=== PATIENT | female | born 1975 | race Caucasian/White ===

== ENCOUNTER 2019-08-03 14:30 | Outpatient (CLI) | payer OTHER ==
[2019-08-03] MEDS ORDERED: PSEUDOEPHEDRINE (15:29)
[2019-08-03] MEDS ORDERED: NAPR220C2 PO (15:29)
[2019-08-03 15:46] LABS: BASOPHILS # (AUTO) 0.02 x10^3/uL (0-0.1); BASOPHILS % (AUTO) 0 % (0-1); EOSINOPHILS # (AUTO) 0.14 x10^3/uL (0-0.4); EOSINOPHILS % (AUTO) 2 % (1-7); LYMPHOCYTES # (AUTO) 1.91 x10^3/uL (1-3.4); LYMPHOCYTES % (AUTO) 32 % (22-44); MD NO; MEAN CORPUSCULAR HEMOGLOBIN 31.1 pg (27.0-34.8); MEAN CORPUSCULAR HGB CONC 33.3 g/dL (32.4-35.8); MEAN CORPUSCULAR VOLUME 93.5 fL (80-100); MONOCYTES # (AUTO) 0.61 x10^3/uL (0.2-0.8); MONOCYTES % (AUTO) 10 % (2-9); NEUTROPHILS # (AUTO) 3.38 x10^3/uL (1.8-6.8); NEUTROPHILS % (AUTO) 56 % (42-75); PLATELET COUNT 226 x10^3/uL (130-400); RED BLOOD COUNT 4.36 x10^6/uL (3.82-5.3); RED CELL DISTRIBUTION WIDTH 13.6 % (9.6-15.2)
[2019-08-03 15:55] LABS: ALBUMIN 3.8 g/dL (3.4-5.0); ANION GAP 5 mmol/L (5-15); CALCIUM 8.9 mg/dL (8.5-10.1); CHLORIDE 109 mmol/L (98-107)
[2019-08-03 15:58] LABS: ALANINE AMINOTRANSFERASE 63 U/L (12-78); ALKALINE PHOSPHATASE 55 U/L (45-117); BILIRUBIN,TOTAL 0.5 mg/dL (0.2-1.0); CREATININE 0.72 mg/dL (0.55-1.02); TOTAL PROTEIN 7.7 g/dL (6.4-8.2)
[2019-08-03 16:09] LABS: MICROSCOPIC NOT IND
[2019-08-03 16:10] LABS: CULTURE INDICATED? NO
== END 2019-08-03 23:59 | disposition home or self-care (01) ==
LOC: STAR 14:30
PROVIDERS: ATTEND Obstetrics & Gynecology
DX: Z01.818 Encounter for other preprocedural examination (principal); D25.9 Leiomyoma of uterus, unspecified
CPT/HCPCS: 36415; 80053; 81003; 85025

== ENCOUNTER 2019-08-16 05:43 | Inpatient (IN) ==
[~2019-08-16] VITALS: Ht 170.2 cm; Wt 112.5 kg
[~2019-08-16 05:43] MED LIST: NAPR220C2 PO; PSEUDOEPHEDRINE
[2019-08-16] MEDS ORDERED: LACTATED RINGERS 1,000 ML IV SCH (06:36)
[2019-08-16 06:41] LABS: HCG UR SG 1.015 (1.003-1.030)
[2019-08-16] MEDS ORDERED: SCOPOLAMINE PATCH, 1.5MG PATCH.TD72 TD ONE (07:00)
[2019-08-16] MEDS ORDERED: ACETAMINOPHEN 500 MG TABLET PO ONE (07:00)
[2019-08-16] MEDS ORDERED: GABAPENTIN 300 MG CAPSULE PO ONE (07:00)
[2019-08-16] MEDS ORDERED: DEXMEDETOMIDINE 200 MCG/2 ML ONE (07:13)
[2019-08-16] MEDS ORDERED: MIDAZOLAM 1 MG/ML, 2ML ONE (07:26)
[2019-08-16] MEDS ORDERED: FENTANYL PF 250 MCG/5ML ONE ×2 (07:27→09:01)
[2019-08-16] MEDS ORDERED: KETOROLAC 30 MG/1 ML ONE (07:37)
[2019-08-16] MEDS ORDERED: LIDOCAINE PF 2%, 5ML ONE (07:37)
[2019-08-16] MEDS ORDERED: VASOPRESSIN 20 UNIT/ML, 1ML ONE (08:10)
[2019-08-16] MEDS ORDERED: SODIUM CHLORIDE 0.9% 100 ML ONE (08:10)
[2019-08-16] MEDS ORDERED: PROMETHAZINE 25 MG/ML, 1ML IV PRN (08:30)
[2019-08-16] MEDS ORDERED: OXYcodone 5 MG/5 ML ORAL.SOL UDC PO PRN ×2 (08:30→13:30)
[2019-08-16] MEDS ORDERED: hydrALAzine 20 MG/ML, 1ML IV PRN (08:30)
[2019-08-16] MEDS ORDERED: ALBUTEROL/IPRATROPIUM 2.5MG/0.5MG, 3 ML NPPB PRN (08:30)
[2019-08-16] MEDS ORDERED: METOPROLOL 1 MG/ML, 5ML IV PRN (08:30)
[2019-08-16] MEDS ORDERED: HYDROmorphone 2 MG/ML, 1ML IVPush PRN (08:30)
[2019-08-16] MEDS ORDERED: MIDAZOLAM 1 MG/ML, 2ML IV PRN (08:30)
[2019-08-16] MEDS ORDERED: FENTANYL PF 100 MCG/2ML IV PRN (08:30)
[2019-08-16] MEDS ORDERED: MEPERIDINE/PF 25MG/ML,1ML IVPush PRN (08:30)
[2019-08-16] MEDS ORDERED: PROPOFOL 10 MG/ML, 20ML ONE (09:02)
[2019-08-16] MEDS ORDERED: GLYCOPYRROLATE 0.2MG/1ML, 5ML ONE (09:02)
[2019-08-16] MEDS ORDERED: ONDANSETRON 2MG/ML, 2ML ONE (09:02)
[2019-08-16] MEDS ORDERED: CEFAZOLIN 1,000 MG ONE (09:02)
[2019-08-16] MEDS ORDERED: LIDOCAINE-MPF 2% ,5ML ONE (09:02)
[2019-08-16] MEDS ORDERED: ROCURONIUM 10MG/ML,5ML ONE (09:02)
[2019-08-16] MEDS ORDERED: DEXAMETHASONE 4 MG/ML, 1ML ONE (09:02)
[2019-08-16] MEDS ORDERED: NEOSTIGMINE 1 MG/ML, 10ML ONE (09:02)
[2019-08-16] MEDS ORDERED: INDIGO CARMINE 0.8%, 5ML ONE ×2 (09:09→09:40)
[2019-08-16] MEDS ORDERED: FENTANYL PF 100 MCG/2ML ONE (11:21)
[2019-08-16] MEDS ORDERED: OXYcodone 5 MG/5 ML ORAL.SOL UDC ONE (11:22)
[2019-08-16] MEDS ORDERED: morphine SULFATE 10 MG/ML, 1ML IV PRN (13:30)
[2019-08-16] MEDS ORDERED: INSTRUCTION SEE COMMENTS XX PRN (13:30)
[2019-08-16 14:04] VITALS: BP 107/68
[2019-08-16] MEDS: IBUPROFEN 600 MG TABLET PO SCH ×2 (16:37→22:10)
[2019-08-16] MEDS: SIMETHICONE 80 MG CHEW TAB PO SCH ×2 (16:37→22:10)
[2019-08-16] MEDS: CEFAZOLIN PMX 2GM/50ML 50 ML IVPB SCH (16:38)
[2019-08-16] MEDS: LACTATED RINGERS 1,000 ML IV SCH (16:45)
[2019-08-16 21:39] VITALS: BP_SYST 101; BP_SYST 96; BP_DIAS 46; BP_DIAS 55
[2019-08-16 23:49] VITALS: BP 98/52
[2019-08-17] MEDS: CEFAZOLIN PMX 2GM/50ML 50 ML IVPB SCH (00:15)
[2019-08-17] MEDS: LACTATED RINGERS 1,000 ML IV SCH ×3 (03:20→20:00)
[2019-08-17] MEDS: OXYcodone/APAP 5/325MG TABLET PO PRN ×4 (03:22→19:11)
[2019-08-17 04:37] VITALS: BP 104/53
[2019-08-17 05:21] LABS: ALBUMIN 2.9 g/dL (3.4-5.0); ANION GAP 4 mmol/L (5-15); CALCIUM 8.1 mg/dL (8.5-10.1); CHLORIDE 109 mmol/L (98-107)
[2019-08-17 05:24] LABS: ALANINE AMINOTRANSFERASE 22 U/L (12-78); ALKALINE PHOSPHATASE 43 U/L (45-117); BILIRUBIN,TOTAL 0.7 mg/dL (0.2-1.0); CREATININE 0.72 mg/dL (0.55-1.02); TOTAL PROTEIN 6.1 g/dL (6.4-8.2)
[2019-08-17] MEDS: IBUPROFEN 600 MG TABLET PO SCH ×4 (05:39→20:44)
[2019-08-17 07:10] VITALS: BP 110/56
[2019-08-17] MEDS: SIMETHICONE 80 MG CHEW TAB PO SCH ×3 (08:13→20:44)
[2019-08-17] MEDS ORDERED: LISINOPRIL 5 MG TABLET PO SCH (09:00)
[2019-08-17 14:30] VITALS: BP 102/60
[2019-08-17 18:46] VITALS: BP 110/65
[2019-08-18 02:27] VITALS: BP 102/64
[2019-08-18] MEDS: OXYcodone/APAP 5/325MG TABLET PO PRN ×3 (02:29→13:12)
[2019-08-18] MEDS: IBUPROFEN 600 MG TABLET PO SCH ×3 (05:02→16:06)
[2019-08-18 07:28] VITALS: BP 112/72
[2019-08-18] MEDS: LACTATED RINGERS 1,000 ML IV SCH ×2 (08:00→15:34)
[2019-08-18] MEDS: SIMETHICONE 80 MG CHEW TAB PO SCH ×2 (08:26→16:06)
[2019-08-18 13:00] VITALS: BP 115/74
[2019-08-18] MEDS ORDERED: OXYC-302 PO (17:16)
[2019-08-18] MEDS ORDERED: NITR100C56 PO (17:16)
[2019-08-18] MEDS ORDERED: IBUP-1840 PO (17:17)
== END 2019-08-18 17:48 | disposition home or self-care (01) | DRG 742 ==
LOC: ORIP 05:43 → 4NE 12:23
PROVIDERS: ADMIT Obstetrics & Gynecology; ATTEND Obstetrics & Gynecology
PROC: 0UT70ZZ Resection of Bilateral Fallopian Tubes, Open Approach (ICD-10-PCS; 2019-08-16)
PROC: 0TJB8ZZ Inspection of Bladder, Via Natural or Artificial Opening Endoscopic (ICD-10-PCS; 2019-08-16)
PROC: 3E0T3BZ Introduction of Anesthetic Agent into Peripheral Nerves and Plexi, Percutaneous Approach (ICD-10-PCS; 2019-08-16)
PROC: 0TQB0ZZ Repair Bladder, Open Approach (ICD-10-PCS; 2019-08-16)
PROC: 0UT90ZZ Resection of Uterus, Open Approach (ICD-10-PCS; principal; 2019-08-16 07:30)
DX: D25.9 Leiomyoma of uterus, unspecified (principal); S37.29XA Other injury of bladder, initial encounter; N92.0 Excessive and frequent menstruation with regular cycle; E66.9 Obesity, unspecified; Z68.38 Body mass index [BMI] 38.0-38.9, adult; X58.XXXA Exposure to other specified factors, initial encounter; Y92.234 Operating room of hospital as the place of occurrence of the external cause
CPT/HCPCS: 36415; J3490; 80053; 81025; 85014; 85018; 86850; 86900; 86923; 88307; G0378; J0690; J1100; J1885; J2250; J2270; J2405; J2704; J2710; J3010; J7120

== ENCOUNTER 2019-08-22 14:40 | Inpatient (IN) | payer OTHER ==
[~2019-08-22] VITALS: Ht 170.2 cm; Wt 108.0 kg
[~2019-08-22 14:40] MED LIST changes: +IBUP-1840 PO; +NITR100C56 PO; +OXYC-302 PO
[2019-08-22 15:23] LABS: BASOPHILS # (AUTO) 0.01 x10^3/uL (0-0.1); BASOPHILS % (AUTO) 0 % (0-1); EOSINOPHILS # (AUTO) 0.18 x10^3/uL (0-0.4); EOSINOPHILS % (AUTO) 3 % (1-7); LYMPHOCYTES # (AUTO) 1.29 x10^3/uL (1-3.4); LYMPHOCYTES % (AUTO) 19 % (22-44); MD NO; MEAN CORPUSCULAR HEMOGLOBIN 30.6 pg (27.0-34.8); MEAN CORPUSCULAR HGB CONC 33.3 g/dL (32.4-35.8); MEAN CORPUSCULAR VOLUME 91.8 fL (80-100); MEAN PLATELET VOLUME 8.3 fL (7.4-10.4); MONOCYTES # (AUTO) 0.82 x10^3/uL (0.2-0.8); MONOCYTES % (AUTO) 12 % (2-9); NEUTROPHILS # (AUTO) 4.59 x10^3/uL (1.8-6.8); NEUTROPHILS % (AUTO) 67 % (42-75); PLATELET COUNT 223 x10^3/uL (130-400); RED BLOOD COUNT 4.29 x10^6/uL (3.82-5.3)
[2019-08-22 15:30] LABS: INTERNATIONAL NORMALIZED RATIO 0.97 (0.93-1.1); PROTHROMBIN TIME 10.2 Seconds (9.6-11.5)
[2019-08-22] MEDS ORDERED: SODIUM CHLORIDE FLUSH 10ML SYR IVF ONE (15:30)
--- NOTE | 2019-08-22 15:32 | NUR ---
URINE SAMPLE COLLECTED, CLEAN CATCH, FROM CATHETER TUBING. BAG EMPTIED
[2019-08-22 15:33] LABS: ALANINE AMINOTRANSFERASE 46 U/L (12-78); ALBUMIN 3.5 g/dL (3.4-5.0); ANION GAP 7 mmol/L (5-15); CALCIUM 9.2 mg/dL (8.5-10.1); CHLORIDE 108 mmol/L (98-107); CREATININE 0.72 mg/dL (0.55-1.02)
[2019-08-22 15:37] LABS: ALKALINE PHOSPHATASE 55 U/L (45-117); BILIRUBIN,TOTAL 0.5 mg/dL (0.2-1.0); TOTAL PROTEIN 7.7 g/dL (6.4-8.2); TROPONIN I < 0.015 ng/mL (0.000-0.045)
--- NOTE | 2019-08-22 16:02 | NUR ---
PT RESTING IN [facility] ON MONITOR, NO NEEDS AT THIS TIME. AWAITING LAB AND RAD RESULTS
[2019-08-22 16:13] LABS: MICROSCOPIC AUTO
[2019-08-22 16:14] LABS: CULTURE INDICATED? NO
--- NOTE | 2019-08-22 16:56 | NUR ---
NEEDS IV FOR CTA
--- NOTE | 2019-08-22 17:02 | NUR ---
UNABLE TO ESTABLISH IV VIA US, RN TO GET ASSIST WITH IV PLACEMENT. PA AWARE
--- NOTE | 2019-08-22 17:32 | NUR ---
IV ESTABLISHED VIA EJ BY ANNA CHATMAN. ANNA CHATMAN ESCORTED PT TO CT FOR CONTRAST INFUSION THROUGH EJ, PER REPORT PT TOLERATED WELL.
[2019-08-22] MEDS ORDERED: OMNIPAQUE 350 MG/ML, 100ML BOTTLE ONE (17:47)
[2019-08-22] MEDS ORDERED: HEPARIN 5,000 UNITS/ML, 1ML IV ONE (18:00)
--- NOTE | 2019-08-22 18:07 | NUR ---
PT RESTING IN GURNEY WITH MOTHER AT BEDSIDE. PT TO BE ADMITTED TO [facility] AND [place] NON-STOKE PROTOCOL INITATED. PT TEARFUL AT THIS TIME, COMFORT MEASURES PROVIDED
[2019-08-22] MEDS ORDERED: HEPARIN 5,000 UNITS/ML, 1ML ONE (18:14)
[2019-08-22] MEDS ORDERED: HEPARIN 25,000 UNITS/500ML PMX 500 ML ONE (18:15)
--- NOTE | 2019-08-22 18:23 | NUR ---
REPORT TO NISHA RN, PT NEEDS [place] GTT STARTED BEFORE TRANSFERRING TO FLOOR
[2019-08-22] MEDS: HEPARIN 25,000 UNITS/500ML PMX 500 ML IV PRN (18:41)
--- NOTE | 2019-08-22 18:45 | NUR ---
[facility] GTT VERIFIED WITH PHARMACY, PT TO BE AT 71-85KG WEIGHT DOSING RANGE, GTT VERIFIED WITH FRANCESCA PATTON RN AND STARTED AT 1840
[2019-08-22] MEDS ORDERED: OXYcodone/APAP 5/325MG TABLET ONE (19:25)
[2019-08-22] MEDS ORDERED: OXYcodone/APAP 5/325MG TABLET PO ONE (19:30)
--- NOTE | 2019-08-22 20:08 | NUR ---
REC'NG NURSE UPDATED THAT THE PT WAS MEDICATED FOR PAIN.
[2019-08-22] MEDS ORDERED: morphine SULFATE 10 MG/ML, 1ML IVPush PRN (20:30)
[2019-08-22] MEDS ORDERED: BISACODYL 10 MG SUPP PR PRN (20:30)
[2019-08-22] MEDS ORDERED: LABETALOL 5MG/ML, 20ML IVPush PRN (20:30)
[2019-08-22] MEDS ORDERED: ONDANSETRON 2MG/ML, 2ML IVPush PRN (20:30)
[2019-08-22] MEDS ORDERED: POLYETHYLENE GLYCOL 17 GM PACKET PO PRN (20:30)
[2019-08-22] MEDS ORDERED: ACETAMINOPHEN 325 MG TABLET PO PRN (20:30)
[2019-08-22 20:40] VITALS: BP 138/86
[2019-08-23 00:37] VITALS: BP 133/81
[2019-08-23] MEDS: HEPARIN 5,000 UNITS/ML, 1ML IV PRN ×2 (01:18→16:03)
[2019-08-23] MEDS: NITROFURANTOIN (MACROBID) 100 MG CAPSULE PO SCH ×2 (02:00→19:54)
[2019-08-23 08:01] LABS: BASOPHILS # (AUTO) 0.03 x10^3/uL (0-0.1); BASOPHILS % (AUTO) 0 % (0-1); EOSINOPHILS # (AUTO) 0.18 x10^3/uL (0-0.4); EOSINOPHILS % (AUTO) 2 % (1-7); LYMPHOCYTES # (AUTO) 1.76 x10^3/uL (1-3.4); LYMPHOCYTES % (AUTO) 23 % (22-44); MD NO; MEAN CORPUSCULAR HGB CONC 33.6 g/dL (32.4-35.8); MEAN CORPUSCULAR VOLUME 92.2 fL (80-100); MEAN PLATELET VOLUME 8.4 fL (7.4-10.4); MONOCYTES # (AUTO) 0.88 x10^3/uL (0.2-0.8); MONOCYTES % (AUTO) 11 % (2-9); NEUTROPHILS # (AUTO) 4.97 x10^3/uL (1.8-6.8); NEUTROPHILS % (AUTO) 64 % (42-75); PLATELET COUNT 225 x10^3/uL (130-400); RED BLOOD COUNT 4.21 x10^6/uL (3.82-5.3)
[2019-08-23 08:05] LABS: ANION GAP 7 mmol/L (5-15); CALCIUM 8.9 mg/dL (8.5-10.1); CHLORIDE 107 mmol/L (98-107); CREATININE 0.68 mg/dL (0.55-1.02)
[2019-08-23 08:10] VITALS: BP 139/84
[2019-08-23] MEDS: SENNA/DOCUSATE TABLET PO SCH (09:15)
[2019-08-23 13:20] VITALS: BP 132/85
[2019-08-23] MEDS: HEPARIN 25,000 UNITS/500ML PMX 500 ML IV PRN (15:49)
[2019-08-23 19:10] VITALS: BP 117/78
[2019-08-24 01:25] VITALS: BP 116/74
[2019-08-24] MEDS: HEPARIN 5,000 UNITS/ML, 1ML IV PRN (06:02)
[2019-08-24 07:44] VITALS: BP 113/77
[2019-08-24] MEDS: SENNA/DOCUSATE TABLET PO SCH (08:42)
[2019-08-24] MEDS: HEPARIN 25,000 UNITS/500ML PMX 500 ML IV PRN (10:45)
[2019-08-24 14:38] VITALS: BP 121/76
[2019-08-24 19:44] VITALS: BP 121/77
[2019-08-24] MEDS: NITROFURANTOIN (MACROBID) 100 MG CAPSULE PO SCH (20:21)
[2019-08-25 00:32] VITALS: BP 113/75
[2019-08-25] MEDS: HEPARIN 25,000 UNITS/500ML PMX 500 ML IV PRN (04:30)
[2019-08-25] MEDS: SENNA/DOCUSATE TABLET PO SCH (08:21)
[2019-08-25 08:50] VITALS: BP 124/81
[2019-08-25] MEDS ORDERED: APIXABAN 5 MG TABLET PO SCH (09:00)
[2019-08-25] MEDS ORDERED: APIX5TAB PO (11:01)
[2019-09-01] MEDS ORDERED: APIXABAN 5 MG TABLET PO SCH (09:00)
== END 2019-08-25 14:45 | disposition home or self-care (01) | DRG 300 ==
LOC: ED 17:56 → EDIP 17:57 → ED 18:33 → 4WST 20:14 → DCLOUNGE 08-25 14:38
PROVIDERS: ADMIT Family Medicine; ATTEND Internal Medicine
DX: T81.718A Complication of other artery following a procedure, not elsewhere classified, initial encounter (principal); J98.11 Atelectasis; I26.99 Other pulmonary embolism without acute cor pulmonale; E66.9 Obesity, unspecified; Z90.710 Acquired absence of both cervix and uterus; Z82.49 Family history of ischemic heart disease and other diseases of the circulatory system; Z68.37 Body mass index [BMI] 37.0-37.9, adult; Z79.899 Other long term (current) drug therapy; Z91.018 Allergy to other foods; Y83.8 Other surgical procedures as the cause of abnormal reaction of the patient, or of later complication, without mention of misadventure at the time of the procedure
CPT/HCPCS: 36415; 71045; 71275; 80048; 80053; 81001; 84484; 85025; 85520; 85610; 93005; 93306; 93922; 96374; 99291; G0378; J1644; Q9967; J2270